=== PATIENT | male | born 1975 | race Caucasian/White ===

== ENCOUNTER → 2016-10-14 | Outpatient (CLI) | payer MEDICARE, MEDICAID ==
[~2016-10-14] MED LIST: ANCEF,KEFZOL-DPS1 GM IV; APRESOLINE-DPS25 MG PO; ASA CHILDREN'S81 MG PO; ASA325 MG PO; CATAPRES0.2 MG PO; CIPRO500 MG PO; CIPRO750 MG PO; CLARITIN10 M2; CLARITIN10 MG PO; DELTASONE DPS20 MG PO; DELTASONE DPS5 MG PO; DELTASONE PO; ECOTRIN-DPS325 MG PO; FEOSOL325 MG PO; FLOMAX DPS0.4 MG PO; GLUTOSE 1537.5 GM PO; HUMALOG100 UNIT/1 SQ; INVANZ1 GM IV; KLOR-CON PO; KLOR-CON20 MEQ PO; LASIX DPS20 MG PO; LASIX DPS40 MG PO; LASIX80 MG PO; LEVEMIR SQ; LEVEMIR100 UNIT/1 SQ; LIPITOR DPS20 MG PO; LIPITOR DPS40 MG PO; LOPRESSOR DPS50 MG PO; LOPRESSOR100 MG PO; MAALOX DPS30 ML PO; METOLAZONE2.5 MG PO; MUCINEX PO; MUCINEX600 MG PO; MYFORTIC180 MG PO; MYFORTIC360 MG PO; NEPHRO-VITE1 TAB PO; NITROSTAT0.4 MG SL; NORMAL SALINE FL5 ML IV; NORMAL SALINE I10 ML IV; NORMAL SALINE IV; NORVASC5 MG PO; NOVOLOG100 UNIT/2 SQ; PEPCID DPS20 MG PO; PEPCID20 MG PO; PHOS-LO667 MG PO; PHOSLO667 MG PO; PLAVIX75 MG PO; PROGRAF PO; PROGRAF0.5 MG PO; PROGRAF1 MG PO; REGLAN DPS5 MG PO; SLOW MAG PO; SLOW-MAG64 MG PO; SOD BICARB TAB650 MG PO; SURFAK DPS240 MG PO; SURFAK240 MG PO; THERA1 EACH PO; TYLENOL DPS325 MG PO; TYLENOL PO; VANCOCIN-DPS1 GM IV; VANCOMYCIN IV; VITAMIN D31000 UNIT PO; ZAROXOLYN2.5 MG PO; ZESTRIL DPS20 MG PO; ZOCOR40 MG PO
== END | disposition home or self-care (01) ==
LOC: PTH.S 10-07 16:00 → THER.SSS 11:00 → PTH.S 11:00
DX: E78.5 Hyperlipidemia, unspecified (principal); T80.219A Unspecified infection due to central venous catheter, initial encounter

== ENCOUNTER → 2016-12-09 | Outpatient (CLI) | payer MEDICARE, MEDICAID | END | disposition home or self-care (01) | LOC: PTH.S 11:10 | DX: I12.9 Hypertensive chronic kidney disease with stage 1 through stage 4 chronic kidney disease, or unspecified chronic kidney disease (principal); N18.3 Chronic kidney disease, stage 3 (moderate); D63.1 Anemia in chronic kidney disease; Z94.0 Kidney transplant status ==

== ENCOUNTER → 2017-01-13 | Outpatient (CLI) | payer MEDICARE, MEDICAID | END | disposition home or self-care (01) | LOC: PTH.S 11-03 16:00 | DX: D63.1 Anemia in chronic kidney disease (principal); I12.9 Hypertensive chronic kidney disease with stage 1 through stage 4 chronic kidney disease, or unspecified chronic kidney disease; N18.3 Chronic kidney disease, stage 3 (moderate); Z94.0 Kidney transplant status ==